=== PATIENT | female | born 1995 | race Caucasian/White ===

== ENCOUNTER 2017-11-25 17:11 | Emergency (ER) | payer OTHER ==
[~2017-11-25] VITALS: Ht 157.5 cm; Wt 74.6 kg
[~2017-11-25 17:11] MED LIST: ADDERALL20 MG PO; ADDERALL5 MG; CITRATE OF MAG296 ML PO; FLEET ENEMA-AD118 ML PR; FLOVENT 11120 INHALA IH; KEFLEX500 MG PO; MOTRIN800 MG PO; NOHOMEMEDS; VENTOLIN HFA18 GM
[2017-11-25 18:52] LABS: HEMATOCRIT 42.5 % (36.0-46.0); HEMOGLOBIN 14.5 G/DL (11.9-15.5); MCH 29.5 PG (29.0-34.0); MCHC 34.1 G/DL (30.0-36.0); MCV 86.6 FL (83-99); PLATELET COUNT 238 K/uL (156-360); RBC DIS.WIDTH-CV 12.4 % (11.8-14.6); RBC DIS.WIDTH-SD 39.1 % (39-53); RED BLOOD COUNT 4.91 M/uL (3.80-5.20); WHITE BLOOD COUNT 7.1 K/uL (4.1-10.2)
[2017-11-25 19:05] LABS: CHLORIDE 103 mEq/L (99-109); POTASSIUM 3.6 mEq/L (3.7-5.4); SODIUM 137 mEq/L (136-147)
[2017-11-25 19:07] LABS: GLUCOSE 82 mg/dL (70-99); TOTAL PROTEIN 7.7 g/dL (6.4-8.3)
[2017-11-25 19:09] LABS: TOTAL BILIRUBIN 0.4 mg/dL (0.0-1.0)
[2017-11-25 19:11] LABS: ALKALINE PHOSPHATASE 52 IU/L (3-129); CREATININE 0.7 mg/dL (0.6-1.3); GFR ESTIMATE (CALCULATED) > 59 mL/min/
[2017-11-25 19:12] LABS: UREA NITROGEN (BUN) 11 mg/dL (9-23)
[2017-11-25 19:13] LABS: AST (GOT) 29 IU/L (2-34)
[2017-11-25 19:14] LABS: ALT (GPT) 21 IU/L (3-49)
[2017-11-25 19:39] LABS: APPEARANCE CLOUDY ((CLEAR)); BILIRUBIN NEGATIVE; BLOOD SMALL; COLOR AMBER ((YELLOW)); GLUCOSE (STRIP) NEGATIVE; KETONES 20; LEUKOCYTES NEGATIVE; NITRITE POSITIVE; PROTEIN (STRIP) NEGATIVE; SPECIFIC GRAVITY 1.024 (1.000-1.030)
[2017-11-25 19:42] LABS: QUANTITATIVE HCG 31665.1 MIU/ML
[2017-11-25] MEDS ORDERED: KEFLEX500 MG PO (19:49)
[2017-11-25 19:57] LABS: BACTERIA 2+ /HPF; EPITHELIAL CELLS 1+ /HPF; MUCUS RARE /LPF; RED BLOOD CELLS 0-5 /HPF (0-5); UCUL ADDED? YES; WHITE BLOOD CELLS 0-5 /HPF (0-5)
[2017-11-25 20:11] VITALS: BP 99/71
== END 2017-11-25 20:12 | disposition home or self-care (01) ==
LOC: EME 17:11
DX: O21.9 Vomiting of pregnancy, unspecified (principal); O23.41 Unspecified infection of urinary tract in pregnancy, first trimester; Z3A.01 Less than 8 weeks gestation of pregnancy
CPT/HCPCS: 80053; 81003; 84702; 85027; 87077; 87086; 87186; 99281; 99284

== ENCOUNTER 2018-01-13 18:51 | Emergency (ER) | payer OTHER ==
[~2018-01-13] VITALS: Ht 157.5 cm; Wt 72.1 kg
[2018-01-13 20:27] LABS: HEMATOCRIT 38.5 % (36.0-46.0); HEMOGLOBIN 13.3 G/DL (11.9-15.5); MCH 29.8 PG (29.0-34.0); MCHC 34.5 G/DL (30.0-36.0); MCV 86.1 FL (83-99); PLATELET COUNT 261 K/uL (156-360); RBC DIS.WIDTH-CV 12.9 % (11.8-14.6); RBC DIS.WIDTH-SD 40.1 % (39-53); RED BLOOD COUNT 4.47 M/uL (3.80-5.20); WHITE BLOOD COUNT 9.8 K/uL (4.1-10.2)
[2018-01-13 20:36] LABS: CHLORIDE 103 mEq/L (99-109); POTASSIUM 3.7 mEq/L (3.7-5.4); SODIUM 136 mEq/L (136-147)
[2018-01-13 20:38] LABS: GLUCOSE 57 mg/dL (70-99)
[2018-01-13 20:42] LABS: CREATININE 0.6 mg/dL (0.6-1.3); GFR ESTIMATE (CALCULATED) > 59 mL/min/
[2018-01-13 20:43] LABS: UREA NITROGEN (BUN) 8 mg/dL (9-23)
[2018-01-13 21:34] VITALS: BP 132/76
[2018-01-13 21:53] LABS: QUANTITATIVE HCG 91396.9 MIU/ML
== END 2018-01-13 21:35 | disposition home or self-care (01) ==
LOC: EME 18:51
PROVIDERS: Nurse Practitioner Family
DX: O20.0 Threatened abortion (principal); Z3A.13 13 weeks gestation of pregnancy
CPT/HCPCS: 76801; 80048; 84702; 85027; 86900; 86901; 99281; 99284

== ENCOUNTER 2018-04-30 16:25 | Outpatient (CLI) | payer OTHER ==
[~2018-04-30 16:25] MED LIST changes: +FLINTSTONES1 EACH PO
[2018-04-30 16:40] VITALS: BP 121/76
[2018-04-30 17:17] LABS: BASOPHIL (%) 0.3 % (0-1); EOSINOPHIL (%) 2.1 % (0-5); EOSINOPHIL COUNT 0.2 K/uL (0-0.3); HEMOGLOBIN 11.8 G/DL (11.9-15.5); IMMATURE GRANULOCYTE (%) 1.2 % (0.0-0.7); LYMPHOCYTE (%) 16.1 % (15-42); LYMPHOCYTE COUNT 1.8 K/uL (1.0-2.8); MCH 28.3 PG (29.0-34.0); MCHC 32.8 G/DL (30.0-36.0); MCV 86.3 FL (83-99); MONOCYTE (%) 11.9 % (3-12); MONOCYTE COUNT 1.3 K/uL (0-0.8); NEUTROPHIL (%) 68.4 % (45-76); NEUTROPHIL COUNT 7.4 K/uL (1.8-6.4); PLATELET COUNT 257 K/uL (156-360); RBC DIS.WIDTH-CV 12.6 % (11.8-14.6); RBC DIS.WIDTH-SD 39.9 % (39-53); RED BLOOD COUNT 4.17 M/uL (3.80-5.20); WHITE BLOOD COUNT 10.9 K/uL (4.1-10.2)
== END 2018-04-30 19:20 | disposition home or self-care (01) ==
LOC: LDRP-OP 16:25 → 2WEST 16:27
PROVIDERS: Nurse Practitioner
DX: O9A.212 Injury, poisoning and certain other consequences of external causes complicating pregnancy, second trimester (principal); Z3A.27 27 weeks gestation of pregnancy; V29.88XA Motorcycle rider (driver) (passenger) injured in other specified transport accidents, initial encounter; Y92.008 Other place in unspecified non-institutional (private) residence as the place of occurrence of the external cause; R10.9 Unspecified abdominal pain
CPT/HCPCS: 76805; 85025; 85460; G0378

== ENCOUNTER 2018-07-13 14:40 | Outpatient (CLI) | payer OTHER ==
[~2018-07-13] VITALS: Ht 157.5 cm; Wt 83.6 kg
[2018-07-13 15:07] VITALS: BP 129/79
[2018-07-13 17:06] VITALS: BP 119/83
== END 2018-07-13 18:18 | disposition home or self-care (01) ==
LOC: LDRP-OP 14:40 → 2WEST 14:41 → LDRP-OP 08-24 21:57
DX: O47.1 False labor at or after 37 completed weeks of gestation (principal); O99.343 Other mental disorders complicating pregnancy, third trimester; F90.9 Attention-deficit hyperactivity disorder, unspecified type; O23.43 Unspecified infection of urinary tract in pregnancy, third trimester; Z3A.38 38 weeks gestation of pregnancy
CPT/HCPCS: 59025; G0378

== ENCOUNTER 2018-07-18 02:00 | Outpatient (CLI) | payer OTHER ==
[~2018-07-18] VITALS: Ht 157.5 cm; Wt 84.0 kg
[2018-07-18 02:15] VITALS: BP 128/90
[2018-07-18 03:37] VITALS: BP 119/79
[2018-07-18 05:55] VITALS: BP 127/71
[2018-07-18 06:55] VITALS: BP 126/75
[2018-07-18 08:28] VITALS: BP 121/80
[2018-07-18 10:32] VITALS: BP 116/69
== END 2018-07-18 11:17 | disposition home or self-care (01) ==
LOC: LDRP-OP 02:00 → 2WEST 02:01 → LDRP-OP 08-24 19:16
DX: O47.1 False labor at or after 37 completed weeks of gestation (principal); Z3A.39 39 weeks gestation of pregnancy
CPT/HCPCS: 59025; G0378

== ENCOUNTER 2018-07-24 08:54 | Inpatient (IN) | payer OTHER ==
[2018-07-24] VITALS (16 sets, daily range): BP systolic 109–146; BP diastolic 70–87
[2018-07-24 12:14] LABS: BASOPHIL (%) 0.3 % (0-1); EOSINOPHIL (%) 2.5 % (0-5); EOSINOPHIL COUNT 0.3 K/uL (0-0.3); HEMATOCRIT 35.3 % (36.0-46.0); HEMOGLOBIN 11.5 G/DL (11.9-15.5); IMMATURE GRANULOCYTE (%) 0.5 % (0.0-0.7); LYMPHOCYTE (%) 12.5 % (15-42); LYMPHOCYTE COUNT 1.3 K/uL (1.0-2.8); MCH 24.9 PG (29.0-34.0); MCHC 32.6 G/DL (30.0-36.0); MCV 76.6 FL (83-99); MONOCYTE COUNT 0.8 K/uL (0-0.8); NEUTROPHIL (%) 76.2 % (45-76); NEUTROPHIL COUNT 7.8 K/uL (1.8-6.4); PLATELET COUNT 296 K/uL (156-360); RBC DIS.WIDTH-CV 14.8 % (11.8-14.6); RBC DIS.WIDTH-SD 40.4 % (39-53); RED BLOOD COUNT 4.61 M/uL (3.80-5.20); WHITE BLOOD COUNT 10.3 K/uL (4.1-10.2)
[2018-07-24 13:16] LABS: AMPHETAMINE NEGATIVE (500 ng/mL); BARBITURATES NEGATIVE (200 ng/mL); BENZODIAZEPINES NEGATIVE (150 ng/mL); COCAINE NEGATIVE (150 ng/mL); METHADONE NEGATIVE (200 ng/mL); METHAMPHETAMINE NEGATIVE (500 ng/mL); OPIATES (MORPHINE) NEGATIVE (100 ng/mL); OXYCODONE NEGATIVE (100 ng/mL); PHENCYCLIDINE NEGATIVE (25 ng/mL); PROPOXYPHENE NEGATIVE (300 ng/mL); THC CANNABINOIDS NEGATIVE (50 ng/mL); TRICYCLIC ANTIDEPRESSANTS NEGATIVE (300 ng/mL)
[2018-07-24 13:17] LABS: BUPRENORPHINE NEGATIVE (10 ng/mL)
[2018-07-24] MEDS ORDERED: IBUPROFEN800 MG PO (22:29)
[2018-07-25 00:35] VITALS: BP 129/76
[2018-07-25 03:03] VITALS: BP 110/68
[2018-07-25 07:38] VITALS: BP 139/87
[2018-07-25 08:56] LABS: TREPONEMA ANTIBODY NEGATIVE (NEGATIVE)
[2018-07-25 15:01] VITALS: BP 123/68
[2018-07-25 22:50] VITALS: BP 119/72
[2018-07-26 07:28] VITALS: BP 120/79
== END 2018-07-26 11:18 | disposition home or self-care (01) | DRG 775 ==
LOC: LDRP-OP 08:54 → 2WEST 08:55 → LDRP-OP 08-24 11:28
PROVIDERS: Advanced Practice Midwife
DX: O70.1 Second degree perineal laceration during delivery (principal); O69.81X0 Labor and delivery complicated by cord around neck, without compression, not applicable or unspecified; O99.214 Obesity complicating childbirth; E66.3 Overweight; Z3A.40 40 weeks gestation of pregnancy; Z37.0 Single live birth
CPT/HCPCS: 85025; 86780; J0595; J7120